=== PATIENT | male | born 1970 | race Caucasian/White ===

== ENCOUNTER → 2018-03-09 | Outpatient (CLI) | payer OTHER ==
[~2018-03-09] MED LIST: GADOBUTROL 10 ML VIAL IVP ONE
== END ==
LOC: FIMAGING 13:03
PROVIDERS: ATTEND Family Medicine
DX: L03.031 Cellulitis of right toe (principal); M86.8X7 Other osteomyelitis, ankle and foot; M71.572 Other bursitis, not elsewhere classified, left ankle and foot
CPT/HCPCS: A9585

== ENCOUNTER 2018-04-02 08:20 | Day surgery (SDC) | payer OTHER ==
[2018-04-02] MEDS ORDERED: LR 1,000 ML IV ONE (09:38)
[2018-04-02] MEDS ORDERED: ERTAPENEM 1 GM in NS 100 ML IV ONE (10:00)
--- NOTE | 2018-04-02 10:07 | PDHPUP ---
History & Physical Update H&P update statement: This history and physical update is based on an assessment of the patient which was completed after admission or registration (within 24 hours), but prior to the surgery/procedure. H&P update: H&P reviewed & patient examined, no change in patient's condition since H&P completed
[2018-04-02] MEDS ORDERED: PROPOFOL/EMULSION 500 MG/50 ML BOTTLE IV ONE (10:15)
[2018-04-02] MEDS ORDERED: fentaNYL 100 MCG/2 ML INJ ONE (10:15)
[2018-04-02] MEDS ORDERED: LIDOCAINE 2% 2 ML INJ ONE (10:16)
[2018-04-02] MEDS ORDERED: MIDAZOLAM 2 MG/2 ML VIAL IVP ONE (10:19)
[2018-04-02] MEDS ORDERED: MIDAZOLAM 2 MG/2 ML VIAL ONE (10:21)
[2018-04-02] MEDS ORDERED: BUPIVACAINE 0.5% 30 ML SDV ONE (10:26)
--- NOTE | 2018-04-02 10:29 | PDANEPAE ---
ANE History of Present Illness rt great toe amp ANE Past Medical History - Cardiovascular History Hx Hypertension: No Hx Arrhythmias: No Hx Chest Pain: No Hx Coronary Artery / Peripheral Vascular Disease: Yes Hx CHF / Valvular Disease: No Hx Palpitations: No Cardiovascular History Comment: PRAVASTATIN - Pulmonary History Hx COPD: No Hx Asthma/Reactive Airway Disease: No Hx Recent Upper Respiratory Infection: No Hx Oxygen in Use at Home: No Hx Sleep Apnea: No Sleep Apnea Screening Result - Last Documented: Negative - Neurologic History Hx Cerebrovascular Accident: No Hx Seizures: No Hx Dementia: No - Endocrine History Hx Diabetes: Yes Hypothyroid: No Hyperthyroid: No Obesity: yes Endocrine History Comment: DM II - METFORMIN - Renal History Hx Renal Disorders: No - Liver History Hx Hepatic Disorders: No - Neurological & Psychiatric Hx Hx Neurological and Psychiatric Disorders: No - Cancer History Hx Cancer: No - Congenital Disorder History Hx Congenital Disorders: No - GI History Hx Gastrointestinal Disorders: No - Other Health History Other Health History: NEG - Chronic Pain History Chronic Pain: Yes (FEET & HANDS COMES & GOES) - Surgical History Prior Surgeries: HERNIA - INFANCY ANE Review of Systems Review of systems is: negative Review of Systems: - Exercise capacity METS (RN): 4 METS ANE Patient History - Allergies Allergies/Adverse Reactions: No Known Allergies Allergy (Verified 02/28/18 22:43) - Home Medications Home medications: home medication list seen and reviewed Home Medications: Amox-Clav 250-125 mg Tablet 03/25/18 [Last Taken Unknown] Metformin HCl 03/25/18 [Last Taken Unknown] Pravastatin Sodium 03/25/18 [Last Taken Unknown] - NPO status NPO Since - Liquids (Date): 04/01/18 NPO Since - Solids (Date): 04/01/18 - Anes Hx Anes Hx: no prior problems - Smoking Hx Smoking Status: Former smoker - Family Anes Hx Family Hx Anesthesia Complications: NEG ANE Labs/Vital Signs - Vital Signs Blood Pressure: 155/87 Heart Rate: 79 Respiratory Rate: 18 O2 Sat (%): 95 Height: 175.26 cm Weight: 120.656 kg ANE Physical Exam - Airway Neck exam: FROM, increased neck circumference Mallampati Score: Class 2 Mouth exam: poor dentition - Pulmonary Pulmonary: no respiratory distress - Cardiovascular Cardiovascular: regular rate and rhythym - ASA Status ASA Status: III ANE Anesthesia Plan Anesthesia Plan: GA with mask
--- NOTE | 2018-04-02 10:30 | POSTANESTH ---
Post Anesthetic Evaluation Cardiovascular Status: Normal, Stable Respiratory Status: Normal, Stable Level of Consciousness/Mental Status: Can Participate in Eval, Alert and Oriented Pain Control: Adequate, Prn Tx Ordered Nausea/Vomiting Control: Adequate, Prn Tx Ordered Complications Possibly Related to Anesthesia: None Noted
[2018-04-02] MEDS ORDERED: ALBUTEROL 3 ML DEYVIAL IH PRN (11:15)
[2018-04-02] MEDS ORDERED: fentaNYL 100 MCG/2 ML INJ IVP PRN (11:15)
[2018-04-02] MEDS ORDERED: PROMETHAZINE HCL 25 MG/ML INJ IVP PRN (11:15)
[2018-04-02] MEDS ORDERED: ACETAMINOPHEN 500 MG TAB PO PRN (11:15)
[2018-04-02] MEDS ORDERED: LR 500 ML IV PRN (11:15)
[2018-04-02] MEDS ORDERED: oxyCODONE IR 5 MG TAB PO PRN (11:15)
[2018-04-02] MEDS ORDERED: NALOXONE HCL 0.4 MG/ML INJ IVP PRN (11:15)
[2018-04-02] MEDS ORDERED: HYDROmorphONE/DILAUDID 2 MG/ML INJ IVP PRN (11:15)
[2018-04-02] MEDS ORDERED: ONDANSETRON 4 MG/2 ML VIAL IVP PRN (11:15)
[2018-04-02] MEDS ORDERED: PROPOFOL 200 MG/20 ML VIAL ONE (11:20)
--- NOTE | 2018-04-02 11:30 | POSTOPPROG ---
Post Op Note Date of Operation: 04/02/18 Surgeon: Mackenzie Angel Hearing Impaired Itinerant Teacher: christine Anesthesiologist: jori Anesthesia: IV Sedation Pre-op Diagnosis: osteomylitis Post-op Diagnosis: same Indication: 47 yo with osteo Procedure: amputation R great toe Findings: ulcer Inf/Abcess present in the surg proc area at time of surgery?: Yes Depth: Deep Incisional (Fascial) EBL: Minimal Specimen(s): micro and path
--- NOTE | 2018-04-02 11:43 | GOP ---
DATE OF OPERATION: 04/02/2018 SURGEON: Mackenzie Angel MD PHOTOGRAPHY MANAGER: Jahaira Juárez PA-C. ANESTHESIA: Dr. Corey Lombardi/monitored anesthesia care with IV sedation. PREOPERATIVE DIAGNOSIS: Osteomyelitis right great toe. POSTOPERATIVE DIAGNOSIS: Osteomyelitis right great toe. PROCEDURE PERFORMED: Amputation right great toe and metatarsal head. FINDINGS: Ulcer on toe. SPECIMENS: Right great toe, distal metatarsal head with ink [place] proximal and right great toe for m icrobiology. ESTIMATED BLOOD LOSS: 15 cc. INDICATIONS: Mr. Crocker is a 47-year-old newly diagnosed diabetic who has osteomyelitis of his toe. DESCRIPTION OF PROCEDURE: The patient was brought into the operating room, placed supine on the tabl e and anesthesia was administered. His foot was prepped and draped in the usual sterile fashion. I infiltrated the area with 20 cc of 0.5% Marcaine. I made a fishmouth incision. I dissected down to the level of the bone. I used a saw to amputate the great toe. I submitted this to Pathology for pe rmanent. I took a section of the proximal ray and sent this for microbiology and finally, I took aft er I used a periosteal elevator to get the soft tissues away from the metatarsal head, took a small a mount of the metatarsal head. I inked this and submitted it to Pathology. Hemostasis was achieved. The deep layer was closed with Vicryl and the skin closed with 2-0 nylon and 3-0 nylon. A waterproo f dressing was applied. He was awakened in the operating room, transferred to PACU in stable conditio n. /[id number]/MODL
[2018-04-02 13:12] VITALS: BP 119/84
== END 2018-04-02 13:12 | disposition home or self-care (01) ==
LOC: FSGY 08:20
PROVIDERS: ATTEND Surgery
PROC: 0Y6P0Z0 Detachment at Right 1st Toe, Complete, Open Approach (ICD-10-PCS; principal; 2018-04-02 10:15)
DX: E11.621 Type 2 diabetes mellitus with foot ulcer (principal); M86.171 Other acute osteomyelitis, right ankle and foot; L03.115 Cellulitis of right lower limb; Z79.84 Long term (current) use of oral hypoglycemic drugs
CPT/HCPCS: J1335; J2250; J2704; J3010